=== PATIENT | female | born 2000 | race African-American/Black ===

== ENCOUNTER 2021-08-10 22:55 | Emergency (ER) | payer SELFPAY ==
--- NOTE | 2021-08-10 23:38 | W.ED.GENAD ---
Discharge Plan Disposition Patient Disposition: HOME Condition: Good Discharge Details Clinical Impression: Gastroenteritis, Acute left otitis media, Urinary tract infection Primary Care Provider: Unknown,Unknown ED Provider: Codey Hester Home Meds and New Rx's Prescriptions: New cephalexin 500 mg capsule 500 mg PO QID 7 Days Qty: 28 0RF Discharge Instructions Instructions: Urinary Tract Infection in Women (ED), Ear Infection (ED), Gastroenteritis (ED) Additional Instructions: At this time you have evidence of a urinary tract infection, a left ear infection, and a viral gastroenteritis. Please drink plenty of fluids and stick with an easy diet of bananas, rice, oat, and applesauce. Please avoid any fatty greasy or spicy foods. For the urinary tract infection and the ear infection please take the antibiotic cephalexin as directed. If you notice any worsening of your symptoms, or any new symptoms such as vomiting, diarrhea, fever, chills, shortness of breath, chest pain, numbness, weakness, or fainting , please return immediately to the emergency department for reevaluation. Please follow up with your primary care provider as soon as possible for reassessment and reevaluation. As always, it was a pleasure participating in your medical care today. Medical Decision Making This is a pleasant 21-year-old -[place] female who denies any significant past medical history who presents today for evaluation of mild abdominal pain, and left ear fullness. Patient states that for the last 1 to 2 days she has had mild achiness in her lower abdomen just inferior to the umbilicus. She has had a few episodes of vomiting. Appetite has been diminished. She also admits to recent constipation, then subsequently taking laxatives over the last day or so which is led to some mild loose stool. She does admit to a slight increase in vaginal discharge, but denies any malodorous component or STDs recently. She denies any chest pain, fever, chills or shortness of breath. She states that her symptoms are made better if she drinks more water, and they are made worse with nothing. She has not taken any Tylenol or Motrin for pain. She denies any urinary components. Her period was last week. Physical exam demonstrates mild left-sided otitis media. She also has mild infraumbilical abdominal pain. No signs of an acute surgical abdomen. Differential is broad but includes constipation, less likely appendicitis. We will treat with Tylenol, evaluate for lab abnormalities and UA, monitor closely and reassess. 1:45 AM Laboratory work-up is returned, patient does demonstrate an elevated white count at 17, no bandemia though. Electrolytes stable. Potassium minimally low at 3.2, renal function stable. Urinalysis does show evidence of urinary tract infection, CT scan demonstrates no evidence of acute appendicitis. There is evidence of diffuse enteric colitis, and possible mild gastroesophagitis. No other significant acute process otherwise. At this time symptoms appear clinically consistent with likely a viral gastroenteritis in conjunction with a urinary tract infection and left otitis media. 2 g of ceftriaxone were given here, will give a prescription for Keflex for home use for the ear and urine. Recommend plenty of fluids, rest, and close follow-up with PCP. Discussed red flags for which to return. I have extensively reviewed the treatment plan and discharge instructions with the patient. I have addressed all patient concerns at this time. The patient was made aware of what symptoms to monitor for that would warrant a return to the emergency department. Discussed the plan with the patient, they demonstrate verbal understanding and agreement with our assessment and plan at this time. The documentation in this chart was dictated using [email or web address] dictation software. Please excuse any dictation errors. FINDINGS: Lungs: The imaged lung bases are clear. Pleural spaces: No pleural effusion. Heart: The heart is normal in size. No pericardial effusion. Liver: Of the liver is upper limits of normal in size and is likely slightly fatty infiltrated. Gallbladder and bile ducts: The gallbladder is contracted. No calcified gallstones. No pericholecystic fluid. No gallbladder wall thickening. Pancreas: The pancreas is normal appearance. Spleen: The spleen is normal appearance. Adrenal glands: The bilateral adrenal glands are normal appearance. Kidneys and ureters: The bilateral kidneys are normal appearance. No hydroureteronephrosis. Stomach and bowel: Mild wall thickening within the distal esophagus extending into the gastroesophageal junction. Probable wall thickening within the gastric folds and gastric antrum. The small bowel and colon are fluid-filled, with air-fluid levels. The fluid is seen to the level of the rectum. Slight hyperenhancement mucosa is seen. No pneumatosis or bowel obstruction. Appendix: No evidence of appendicitis. The appendix is normal appearance and is best seen on coronal images 33-48, series 7. Intraperitoneal space: No free fluid, free air or abscess. No free fluid, free air or abscess. Vasculature: The abdominal aorta is normal in caliber without evidence for aneurysm. Lymph nodes: Increased number of small, but rounded lymph nodes are seen throughout the mesentery. Urinary bladder: Mild circumferential wall thickening within the urinary bladder. The urinary bladder is nondistended. Reproductive: Multiple follicles are seen within the bilateral ovaries. The uterus is normal appearance. Bones/joints: No evidence for acute fracture. Soft tissues: Unremarkable. IMPRESSION: 1. Findings suggestive of a diffuse infectious or inflammatory enterocolitis, with fluid-filled small bowel and colon to the level of the rectum. No bowel obstruction or perforation. No free air or abscess. Normal appendix. 2. Possible gastroesophagitis. 3. Mild circumferential wall thickening within the urinary bladder, which may be due to underdistension. Cystitis could have this appearance, in the correct clinical context. 4. Probable mild hepatic steatosis. Thank you for allowing us to participate in the care of your patient. Dictated and Authenticated by: Amelia Hall MD 08/11/2021 1:36 AM Eastern Time ([place] & [place]) HPI General Date/Time Provider Initiated Documentation: 08/10/21 23:26. HPI Narrative: This is a pleasant 21-year-old -[place] female who denies any significant past medical history who presents today for evaluation of mild abdominal pain, and left ear fullness. Patient states that for the last 1 to 2 days she has had mild achiness in her lower abdomen just inferior to the umbilicus. She has had a few episodes of vomiting. Appetite has been diminished. She also admits to recent constipation, then subsequently taking laxatives over the last day or so which is led to some mild loose stool. She does admit to a slight increase in vaginal discharge, but denies any malodorous component or STDs recently. She denies any chest pain, fever, chills or shortness of breath. She states that her symptoms are made better if she drinks more water, and they are made worse with nothing. She has not taken any Tylenol or Motrin for pain. She denies any urinary components. Her period was last week. Related Data Home Medications Medication Instructions Recorded Confirmed cephalexin 500 mg capsule 500 mg PO QID 7 Days #28 cap 08/11/21 Previous Rx's Medication Instructions Recorded cephalexin 500 mg capsule 500 mg PO QID 7 Days #28 cap 08/11/21 Allergies Allergy/AdvReac Type Severity Reaction Status Date / Time No Known Allergies Allergy Unverified 08/11/21 00:24 Review of Systems All systems reviewed & are unremarkable except as noted in HPI and below PFSH All Active Problems (Updated 08/11/21 @ 01:47 by Codey Hester DO) Gastroenteritis (Acute) Acute left otitis media (Acute) Urinary tract infection (Acute) Social History Smoking/Tobacco Use Status: Never Smoking risk assessment performed?: Yes Alcohol Intake: current Alcohol Intake frequency: holidays/special occasions only Drug use: Occasionally Substance use type: marijuana Do you feel safe at home: Yes Do you feel safe in your relationship?: Yes Exam Narrative Exam Narrative: 1.Const: Well-nourished, Well-developed, appearing stated age 2.Eyes: PERRL, no conjunctival injection, and symmetrical lids. 3.ENT: Atraumatic external nose and ears. Moist MM. Neck: Symmetric, trachea midline, No thyromegaly. Patient's left ear demonstrates a mild amount of purulence in the inferior component of the tympanic membrane. No severe bulging. No erythema in the canal. 4.CVS: +S1/S2, No murmurs or gallops. Peripheral pulses 2+ and equal in all extremities. Brisk capillary refill in all extremities. 5.RESP: Unlabored respiratory effort. Clear to auscultation bilaterally. No wheezes rales or rhonchi 6.GI: Soft, nondistended. Mild pain just infraumbilically on exam. No guarding or rebound no. No pain at McBurney's point, negative Choudhury sign. No flank or CVA tenderness. Negative obturator and psoas sign. No pain or referring to pain with heel strike test. 7.MSK: Normocephalic/Atraumatic, Extremities w/o deformity or ttp No cyanosis or clubbing, Normal movement of all extremities 8.Skin: Warm, Dry. No rashes or lesions. 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 Sensation grossly intact, no focal neurologic deficits. 10.Psych: (AAO) x3. Appropriate mood and affect
[2021-08-11 00:20] VITALS: BP 114/66; PULSE 106; RESP 18; TEMP 36.6; O2SAT 100
[2021-08-11 00:22] LABS: Abs Immature Grans 0.07 10^3/uL (0.0-0.06); Absolute Monocyte Count 1.22 10^3/uL (0.1-0.8); Basophils % 0.3; Eosinophils % 0.1; HCT 40.3 % (36.0-46.0); HGB 13.2 g/dL (11.2-15.7); Immature Grans % 0.4; Lymphocytes % 9.1; MCH 26.6 pg (27.0-33.0); MCHC 32.8 % (32.0-36.0); MCV 81.3 fL (80-95); MPV 12.1 fL (8.0-11.0); Monocytes % 6.8; Neutrophils % 83.3; Nucleated RBC 0 %; Platelet Count 207 10^3/uL (130-400); RBC 4.96 10^6/uL (3.93-5.22); RDW 12.7 % (11.7-14.6); RDW-SD 37.4 fL; WBC 17.88 10^3/uL (4.4-10.8)
[2021-08-11 00:23] LABS: Absolute Basophil Count 0.05 10^3/uL (0.0-0.2); Absolute Eosinophil Count 0.02 10^3/uL (0.0-0.7); Absolute Lymphocyte Count 1.63 10^3/uL (1.2-3.4); Absolute Neutrophil Count 14.89 10^3/uL (1.2-6.7)
[2021-08-11 00:24] LABS: Bilirubin Negative (Negative); Blood Moderate (Negative); Clarity Sl Cloudy (Clear); Glucose Negative (Negative); Ketones >=160 mg/dL (Negative); Leukocyte Esterase Moderate (Negative); Nitrite Negative (Negative); Specific Gravity 1.015 (1.005-1.025); Urobilinogen 0.2 EU/dL (Up TO 0.2); pH 6.5 (5-8)
[2021-08-11] MEDS: Acetaminophen 500 MG TAB 1000 MG PO (00:28)
--- NOTE | 2021-08-11 00:30 | DI.CT_ITS ---
Exam(s) CT ABDOMEN PELVIS W EXAM: CT ABDOMEN PELVIS W CLINICAL HISTORY: infraumbilical abdominal pain, vomiting, r/o appe. TECHNIQUE: Imaging Protocol: Axial computed tomography images with coronal and sagittal reformatted images were created and reviewed CONTRAST MATERIAL: Intravenous: Omnipaque 100cc Oral: None COMPARISON: No exams were available for comparison FINDINGS: VISUALIZED LUNG BASES: No nodules nor pleural effusions evident. ABDOMEN: There is no ascites. LIVER: There are no focal hepatic lesions evident . GALLBLADDER/BILIARY: No obvious gallbladder pathology. CBD is not dilated. PANCREAS: No evidence of pancreatic mass nor dilatation of the pancreatic duct. SPLEEN: Spleen is not enlarged. No obvious intrasplenic lesions. Splenic and portal veins are paten t. ADRENALS: There are no significant adrenal masses. KIDNEYS:No cysts evident. No solid renal masses. No calculi nor hydronephrosis.. ABDOMINAL AORTA: Abdominal aorta is not enlarged. LYMPH NODES:There is no retroperitoneal nor paraaortic adenopathy. ABDOMINAL WALL: No evidence of significant anterior abdominal wall nor inguinal hernia. GI: There fluid-filled bowel loops, both large and small bowel. No bowel obstruction. PELVIS: GI: Appendix is difficult to locate as a separate distinct structure.No evidence of sigmoid diverticu litis. LYMPH NODES: There is no intrapelvic nor inguinal adenopathy. REPRODUCTIVE: Uterus size is normal. Right ovary appears slightly prominent measuring 3 point 6 x 0. 8 cm. Left ovary normal size. URINARY BLADDER: No calculi nor obvious masses evident OSSEOUS: No significant osseous lesions. IMPRESSION: 1. There is fluid in small and large bowel loops, consistent with element of enteritis. No obvious b owel obstruction. No free air. No abscess. 2. Slightly prominent right ovary. Recommend pelvic ultrasound. 3. No free fluid 4. RADIATION DOSE DELIVERED: 853.98mGy.cm Total DLP DATA REPOSITORY: All CT scans at this facility are submitted to the National Radiology Data Registry (NRDR) Dose Index Registry (DIR) with the [employer] (A[employer]). RADIATION OPTIMIZATION: All CT scans at this facility use at least one of these dose optimization te chniques: automated exposure control; mA and/or kV adjustment per patient size (includes targeted exa ms where dose is matched to clinical indication); or iterative reconstruction.
[2021-08-11 00:32] LABS: Bacteria Few HPF (Negative); C & S Indicated? No/Sq. Contamination; Casts Negative LPF (Negative); Crystals Negative HPF (Negative); Epithelial Cells Moderate HPF (Negative); Mucus Negative (Negative); WBC 20-50 HPF (0-5)
[2021-08-11 00:41] LABS: ALT 10 U/L (14-59); AST 11 U/L (15-37); Albumin 3.9 g/dL (3.4-5.0); Alkaline Phosphatase 92 U/L (46-116); Anion Gap 12.1 mmol/L (3-11); BUN 6 mg/dL (7-18); Bilirubin, Total 0.4 mg/dL (0.2-1.0); CO2 23.9 mmol/L (21.0-32.0); CREATININE 0.8 mg/dL (0.55-1.02); Calcium 9.3 mg/dL (8.5-10.1); Chloride 98 mmol/L (98-107); Glucose 117 mg/dL (74-106); Potassium 3.2 mmol/L (3.5-5.1); Sodium 134 mmol/L (136-145); Total Protein 8.2 g/dL (6.4-8.2)
[2021-08-11] MEDS: Omnipaque 350 MG/ML 100 ML BTL IV (00:59)
[2021-08-11] MEDS: cefTRIAXone 2 GM/50 ML BAG IVPB (01:24)
[2021-08-11] MEDS: Normal Saline 1,000 ML 1000 ML IV (01:24)
--- NOTE | 2021-08-11 01:37 | DI.VRAD_ITS ---
PROCEDURE INFORMATION: Exam: CT Abdomen And Pelvis With Contrast Exam date and time: 08/11/2021 12:36 AM Age: 21 years old Clinical indication: Other: Infraumbilical abd pain, vomiting, R/O appe TECHNIQUE: Imaging protocol: Computed tomography of the abdomen and pelvis with contrast. Radiation optimization: All CT scans at this facility use at least one of these dose optimization techniques: automated exposure control; mA and/or kV adjustment per patient size (includes targeted exams where dose is matched to clinical indication); or iterative reconstruction. Contrast material: OMNIPAQUE 350; Contrast volume: 100 ml; Contrast route: INTRAVENOUS (IV); COMPARISON: No relevant prior studies available. FINDINGS: Lungs: The imaged lung bases are clear. Pleural spaces: No pleural effusion. Heart: The heart is normal in size. No pericardial effusion. Liver: Of the liver is upper limits of normal in size and is likely slightly fatty infiltrated. Gallbladder and bile ducts: The gallbladder is contracted. No calcified gallstones. No pericholecystic fluid. No gallbladder wall thickening. Pancreas: The pancreas is normal appearance. Spleen: The spleen is normal appearance. Adrenal glands: The bilateral adrenal glands are normal appearance. Kidneys and ureters: The bilateral kidneys are normal appearance. No hydroureteronephrosis. Stomach and bowel: Mild wall thickening within the distal esophagus extending into the gastroesophageal junction. Probable wall thickening within the gastric folds and gastric antrum. The small bowel and colon are fluid-filled, with air-fluid levels. The fluid is seen to the level of the rectum. Slight hyperenhancement mucosa is seen. No pneumatosis or bowel obstruction. Appendix: No evidence of appendicitis. The appendix is normal appearance and is best seen on coronal images 33-48, series 7. Intraperitoneal space: No free fluid, free air or abscess. No free fluid, free air or abscess. Vasculature: The abdominal aorta is normal in caliber without evidence for aneurysm. Lymph nodes: Increased number of small, but rounded lymph nodes are seen throughout the mesentery. Urinary bladder: Mild circumferential wall thickening within the urinary bladder. The urinary bladder is nondistended. Reproductive: Multiple follicles are seen within the bilateral ovaries. The uterus is normal appearance. Bones/joints: No evidence for acute fracture. Soft tissues: Unremarkable. IMPRESSION: 1. Findings suggestive of a diffuse infectious or inflammatory enterocolitis, with fluid-filled small bowel and colon to the level of the rectum. No bowel obstruction or perforation. No free air or abscess. Normal appendix. 2. Possible gastroesophagitis. 3. Mild circumferential wall thickening within the urinary bladder, which may be due to underdistension. Cystitis could have this appearance, in the correct clinical context. 4. Probable mild hepatic steatosis. Dictated and Authenticated by: mAelia Hall MD. Ordering:JOON Alegre MD
[2021-08-11 02:01] VITALS: BP 112/58; PULSE 95; RESP 16; O2SAT 100
== END 2021-08-11 02:09 | disposition home or self-care (01) ==
PROVIDERS: Emergency Medicine; Emergency Provider Student in an Organized Health Care Education/Training Program
DX: A08.4 Viral intestinal infection, unspecified (principal); H66.92 Otitis media, unspecified, left ear; N39.0 Urinary tract infection, site not specified; R10.30 Lower abdominal pain, unspecified; R11.10 Vomiting, unspecified
CPT/HCPCS: 36415; 80053; 81025; 96361; 96365; 99285; 74177; 81003; 81015; 85025; 99284; J3490